=== PATIENT | male | born 1970 | race American Indian/Alaskan Native ===

== ENCOUNTER 2018-11-28 12:46 | Emergency (ER) | payer OTHER ==
[2018-11-28 12:56] VITALS: BP 165/111
--- NOTE | 2018-11-28 12:56 | Emergency Department Report ---
Blank Doc - Documentation Documentation: Right eye irritation that started this morning. Took out contact pain is still 10/. PMH none. This initial assessment diagnostic orders/clinical plan/treatment (s) is/Are subject change based on patient's health status, clinical progression and re- assessment by fellow clinical providers in the ED. Further treatment and work-up at subsequent clinical providers discretion. Patient/guardians urged not to elope from s their condition may be serious if not clinically assessed and managed. Inital order include: David
[2018-11-28] MEDS ORDERED: IBUPROFEN PO ONE (12:58)
[2018-11-28] MEDS ORDERED: IBUPROFEN ONE (13:00)
[2018-11-28] MEDS ORDERED: TETRACAINE 0.5% ONE (13:22)
[2018-11-28] MEDS ORDERED: FUL-GLO OP ONE ×2 (13:22→14:24)
[2018-11-28] MEDS ORDERED: TETRACAINE 0.5% OU ONE (14:24)
--- NOTE | 2018-11-28 14:36 | Emergency Department Report ---
ED Eye Problem HPI - General Chief complaint: Eye Problems Stated complaint: RT EYE PAIN/CANT SEE Time Seen by Provider: 11/28/18 12:53 Source: patient Mode of arrival: Ambulatory Limitations: No Limitations - History of Present Illness Initial comments: This is a 48-year-old male who presents to ED complaining of right eye pain that began this morning. Patient states he went to put on his contact and somehow may have rubbed it and shortly after that his ears transient right eye pain. Patient states he had taken the contact out when that happened. He denies loss of vision, trauma to the eye. chief complaint: eye pain - Related Data Previous Rx's Medication Instructions Recorded Last Taken Type Ketorolac Tromethamine [Acular 1 - 2 drops OP TID #5 ml 11/28/18 Unknown Rx 0.5% Opth Soln] Ofloxacin 0.3% [Ocuflox] 1 - 2 drops OP TID #1 bottle 11/28/18 Unknown Rx Allergies Allergy/AdvReac Type Severity Reaction Status Date / Time cephalexin [From Keflex] Allergy Unknown Verified 11/28/18 12:56 ED Review of Systems ROS: Stated complaint: RT EYE PAIN/CANT SEE Other details as noted in HPI Comment: All other systems reviewed and negative ED Past Medical Hx - Past Medical History Previous Medical History?: No - Surgical History Past Surgical History?: No - Social History Smoking Status: Never Smoker Substance Use Type: Alcohol - Medications Home Medications: Home Medications Medication Instructions Recorded Confirmed Last Taken Type Ketorolac Tromethamine [Acular 1 - 2 drops OP TID #5 ml 11/28/18 Unknown Rx 0.5% Opth Soln] Ofloxacin 0.3% [Ocuflox] 1 - 2 drops OP TID #1 bottle 11/28/18 Unknown Rx ED Physical Exam - General Limitations: No Limitations General appearance: alert, in no apparent distress - Head Head exam: Present: atraumatic, normocephalic - Eye Eye exam: Present: normal appearance - ENT ENT exam: Present: mucous membranes moist - Neck Neck exam: Present: normal inspection - Respiratory Respiratory exam: Present: normal lung sounds bilaterally. Absent: respiratory distress - Cardiovascular Cardiovascular Exam: Present: regular rate, normal rhythm. Absent: systolic murmur, diastolic murmur, rubs, gallop - GI/Abdominal GI/Abdominal exam: Present: soft, normal bowel sounds - Rectal Rectal exam: Present: deferred - Extremities Exam Extremities exam: Present: normal inspection - Back Exam Back exam: Present: normal inspection - Neurological Exam Neurological exam: Present: alert, oriented X3 - Psychiatric Psychiatric exam: Present: normal affect, normal mood - Skin Skin exam: Present: warm, dry, intact, normal color. Absent: rash ED Course Vital Signs 11/28/18 11/28/18 12:53 15:00 Temperature 97.7 F 97.7 F Pulse Rate 84 84 Respiratory 16 16 Rate Blood Pressure 165/111 O2 Sat by Pulse 99 99 Oximetry ED Medical Decision Making - Medical Decision Making 48-year-old male presents with a corneal abrasion of the right eye. Vision is intact. Discussed f/u with pcp as well as Opthal vital signs normal, no acute distress Critical care attestation.: If time is entered above; I have spent that time in minutes in the direct care of this critically ill patient, excluding procedure time. ED Disposition Clinical Impression: Corneal abrasion, right Disposition: [id number] TO HOME OR SELFCARE Is pt being admited?: No Does the pt Need Aspirin: No Condition: Stable Instructions: Corneal Abrasion (ED) Additional Instructions: Make sure to follow up with the primary care physician as discussed. Take all your medications as you've been prescribed. If you have any worsening symptoms or develop new symptoms please return to ED immediately. Prescriptions: Ketorolac Tromethamine [Acular 0.5% Opth Soln] 1 - 2 drops OP TID #5 ml Ofloxacin 0.3% [Ocuflox] 1 - 2 drops OP TID #1 bottle Referrals: CHRIS CARROLL MD [Primary Care Provider] - 3-5 Days SANDRINE SPICER MD [Staff Physician] - 3-5 Days Forms: Accompanied Note, Work/School Release Form(ED) Time of Disposition: 14:37
== END 2018-11-28 15:01 | disposition home or self-care (01) ==
LOC: ED 12:46
DX: S05.01XA Injury of conjunctiva and corneal abrasion without foreign body, right eye, initial encounter (principal); X58.XXXA Exposure to other specified factors, initial encounter; Y93.89 Activity, other specified; Y92.89 Other specified places as the place of occurrence of the external cause; Y99.8 Other external cause status
CPT/HCPCS: 99283